=== PATIENT | male | born 1960 | race Caucasian/White ===

== ENCOUNTER 2018-05-14 00:03 | Emergency (ER) | payer OTHER, SELFPAY ==
[2018-05-14 00:04] VITALS: BP 159/117; PULSE 74; RESP 16; TEMP 36.8; O2SAT 98; BMI 34.7
[2018-05-14 00:12] VITALS: BP 166/102; PULSE 79; RESP 18; O2SAT 95
--- NOTE | 2018-05-14 00:22 | EKG12_ITS ---
Test Reason : HTN Blood Pressure : / mmHG Vent. Rate : 080 BPM Atrial Rate : 080 BPM P-R Int : 148 ms QRS Dur : 098 ms QT Int : 392 ms P-R-T Axes : 061 -11 014 degrees QTc Int : 452 ms Normal sinus rhythm Incomplete right bundle branch block Borderline ECG Confirmed by PEGGY POPE ([id number]), graphic editor PAUL MACKENZIE ([id number]) on 05/19/2018 1:37:18 PM Referred By: CATHI Confirmed By:PEGGY POPE
--- NOTE | 2018-05-14 00:26 | ED.RN ---
NO OLD EKGS IN MUSE.
[2018-05-14 00:52] VITALS: BP 167/100; PULSE 77; RESP 17
[2018-05-14 00:55] LABS: Absolute Lymphocyte Count 1.55 X10^3/ul (0.83-4.51); Absolute Neutrophil Count 2.5 X10^3/uL (2.0-7.7); Basophil# 0.01 X10^3/uL; Basophil% 0.2 % (0-1); Eosinophil# 0.16 X10^3/uL; Eosinophils% 3.4 % (0-5); Hematocrit 41.4 % (40-54); Hemoglobin 14.8 g/dl (13.0-16.5); Lymphocyte # 1.55 X10^3/ul (4.0); Lymphocyte % 33.1 % (19-41); Mean Corp Hgb Conc 35.7 g/gl (32-36); Mean Corpuscular Hgb 31.6 pg (27.0-32.0); Mean Corpuscular Volume 88.3 fL (80-94); Mean Platelet Vol. 9.1 fl (6.2-12.0); Monocyte# 0.48 X10^3/uL; Monocyte% 10.3 % (0-10); Neutrophil # 2.47 X10^3/uL (2.7-7.7); Neutrophil % 52.8 % (47-70); Platelet Count 176 K/mm3 (150-450); RBC Distribution Width SD 41.7 fl (35.1-43.9); Red Blood Count 4.69 M/mm3 (4.6-6.2); White Blood Count 4.7 K/mm3 (4.4-11.0)
[2018-05-14 01:02] LABS: Anion Gap 8 (5-15); BUN 20 mg/dL (7-18); BUN/Creat Ratio 19.8 RATIO (10-20); Calcium,Total 8.9 mg/dL (8.5-10.1); Chloride 108 mmol/L (98-107); Creatinine, Serum 1.01 mg/dL (0.70-1.30); EST Glomerular Filtration Rate 81 mL/min (>60); Est Glom Filt Rate - Afr Amer 98 mL/min (>60); Estimated Creatinine Clearance 79.95 ml/min; Glucose 105 mg/dL (74-106); POSITIVE COUNT NO; POSITIVE DIFFERENTIAL NO; POSITIVE MORPHOLOGY NO; Potassium 3.9 mmol/L (3.5-5.1); Sodium Level 143 mmol/L (136-145)
[2018-05-14 01:40] VITALS: BP 174/104; PULSE 78; RESP 18; O2SAT 96
--- NOTE | 2018-05-14 02:36 | ED.VISSUMM ---
- ER Visit Summary Date of Service: 05/14/18 Chief Complaint: [High blood pressure] History of Present Illness: The patient is a 57 M [presents the emergency department complaint of high blood pressure today. Patient states that he was walking down the street when he developed a nosebleed from the left side of his nose. Patient denies any trauma to his nose or picking his nose or blowing his nose. Patient states that he tried using ice to the nose and to his feet and then held pressure and it took several hours for the nose to stop bleeding. Patient checked his blood pressure at the time noted that his blood pressure was elevated. Patient states that his physician is also told him in the past that his blood pressure was somewhat elevated but no blood pressure medication was started. Patient denies any chest pain. He denies any shortness of breath. Patient denies severe headaches.] Physical Examination: [HEENT-PERRLA, EOMI. Cranial nerves II through XII grossly intact. TMs clear. Mucous membranes moist. No adenopathy. Left nasal vault-patient has some dry blood to the anterior septum with no active bleeding noted currently. Cardiovascular-regular rate and rhythm without murmur or ectopy Lungs-clear to auscultation, chest wall stable without crepitus or subcu emphysema Abdomen-normoactive bowel sounds, soft, nontender, no rebound or rigidity, no peritoneal signs. Extremities-intact ?4, normal range of motion, normal pulses, atraumatic] Test Results: [EKG obtained on arrival shows sinus rhythm with a ventricular rate of 80 bpm with an incomplete right bundle branch block. CBC with differential was normal. Chemistries were normal. Troponin was less than 0.015.] Emergency Department Course and Treatment: [Patient was started on Norvasc 5 mg p.o.] Treatment Plan: [Patient will be started on Norvasc and advised to follow-up with his primary care physician in 1 week. Patient to keep a journal of his blood pressures over the course of next week every day.] Disposition: [Discharged home in stable condition] Impression: [Hypertension Epistaxis left anterior-resolved] This note was generated with [employer] dictation software. It may contain incorrect words, spelling, and punctuation that were not noted in review of the chart prior to signing ED Disposition - Plan for ED Patient: Chief Complaint: Hypertension Referrals: Delvin Fraser DO [Primary Care Provider] -
--- NOTE | 2018-05-14 02:39 | ED.DEP ---
ED Disposition - Plan for ED Patient: Chief Complaint: Hypertension Instructions: ED Hypertension New Begin Tx, ED Nosebleed Prescriptions: Amlodipine [Norvasc] 5 mg PO DAILY #30 tab Referrals: Delvin Fraser DO [Primary Care Provider] - 1 Week
[2018-05-14] MEDS: amLODIPine 5 MG Tablet PO (02:48)
[2018-05-14 02:52] VITALS: BP 158/102; PULSE 77; RESP 19; O2SAT 95
== END 2018-05-14 02:53 | disposition home or self-care (01) ==
LOC: ED 00:29
PROVIDERS: Emergency Provider Emergency Medicine; PCP Family Medicine
DX: I10 Essential (primary) hypertension (principal); R04.0 Epistaxis; I45.10 Unspecified right bundle-branch block
CPT/HCPCS: 80048; 84484; 85025; 93005; 99284

== ENCOUNTER 2019-11-04 10:05 | Observation (INO) | payer OTHER, SELFPAY ==
[2019-11-04] VITALS (11 sets, daily range): BP systolic 107–136; BP diastolic 70–90; PULSE 16–84; RESP 15–81; TEMP 36.1–37; O2SAT 94–100; BMI 33.2; BMI 25.7; BMI 25.8
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
[2019-11-04] MEDS: 0.9% Normal Saline 1,000 ML 150 ML IV ×2 (10:37→14:19)
[2019-11-04] MEDS: Diphth,Pertuss(Acell),Tet Vac 0.5 ML Vial IM (10:39)
[2019-11-04 10:40] LABS: Absolute Lymphocyte Count 1.39 X10^3/uL (0.83-4.51); Absolute Neutrophil Count 3.8 X10^3/uL (2.0-7.7); Basophil# 0.02 X10^3/uL; Basophil% 0.3 % (0-1); Eosinophil# 0.09 X10^3/uL; Eosinophils% 1.5 % (0-5); Hematocrit 45.4 % (40-54); Hemoglobin 15.2 g/dL (13.0-16.5); Lymphocyte # 1.39 X10^3/ul (4.0); Lymphocyte % 23.6 % (19-41); Mean Corp Hgb Conc 33.5 g/dL (32-36); Mean Corpuscular Hgb 29.9 pg (27.0-32.0); Mean Corpuscular Volume 89.2 fL (80-94); Mean Platelet Vol. 9.4 fl (6.2-12.0); Monocyte# 0.54 X10^3/uL; Monocyte% 9.2 % (0-10); NRBC Flagged by Analyzer 0 % (0-5); Neutrophil # 3.83 X10^3/uL (2.7-7.7); Neutrophil % 64.9 % (47-70); Platelet Count 168 K/mm3 (150-450); RBC Distribution Width CV 12.5 % (11.6-14.6); Red Blood Count 5.09 M/mm3 (4.6-6.2); White Blood Count 5.9 K/mm3 (4.4-11.0)
[2019-11-04 10:51] LABS: ALB/GLOB Ratio 1.1 RATIO (0.9-2.4); AST(SGOT) 40 U/L (15-37); Alanine Aminotransfer ALT/SGPT 90 U/L (16-61); Albumin, Serum 4.1 g/dL (3.2-5.0); Alkaline Phosphatase 73 U/L (45-117); Anion Gap 4 (5-15); BUN 21 mg/dL (7-18); BUN/Creat Ratio 18.3 RATIO (10-20); Calcium,Total 9.1 mg/dL (8.5-10.1); Chloride 108 mmol/L (98-107); Creatinine, Serum 1.15 mg/dL (0.70-1.30); EST Glomerular Filtration Rate 70 mL/min (>60); Est Glom Filt Rate - Afr Amer 84 mL/min (>60); Estimated Creatinine Clearance 70.87 ml/min; Globulin 3.7 g/dL (2.2-4.2); Glucose 100 mg/dL (74-106); Potassium 4.6 mmol/L (3.5-5.1); Protein, Total 7.8 g/dL (6.4-8.2); Sodium Level 139 mmol/L (136-145)
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
--- NOTE | 2019-11-04 12:09 | ED.RN ---
pt urinated while in imaging. imaging was unaware of the need for U/A. MD aware. pt aware that there is an order for U/A.
[2019-11-04 12:32] LABS: Bacteria 0 SEEN /hpf (None Seen); Mucous, Urine 0 SEEN /hpf (<or=2+); Red Blood Cells-Urine 0 SEEN /hpf (0-5); Squamous Epithelial Cells - UA 0 SEEN /hpf (0-5); White Blood Cells 0 SEEN /hpf (0-5)
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
[2019-11-04 12:49] LABS: Glucose, Dipstick Normal (Normal); Ketone-Dipstick Negative (Negative); Leukocyte Esterase-Dipstick Negative /ul (Negative); Nitrite-Dipstick Negative (Negative); Occult Blood-Urine Negative /ul (Negative); Protein-Dipstick Negative (Negative); Urine Bilirubin Dipstick Negative (Negative); Urine Urobilinogen Normal (Normal); Urine pH 6.5 (5.0 - 8.0)
[2019-11-04 12:50] LABS: Color, Urine YELLOW (Yellow); Urine Clarity Clear (Clear)
[2019-11-04] MEDS: Cefazolin 1 GM/50 ML BAG IV (13:21)
--- NOTE | 2019-11-04 14:52 | EKG12_ITS ---
Test Reason : PRE OP Blood Pressure : / mmHG Vent. Rate : 074 BPM Atrial Rate : 074 BPM P-R Int : 150 ms QRS Dur : 106 ms QT Int : 388 ms P-R-T Axes : 059 012 024 degrees QTc Int : 430 ms Normal sinus rhythm with sinus arrhythmia Normal ECG Confirmed by RAVINDER ZIMMERMAN, IAN ([id number]), associate entertainment editor DEBRA MERCER ([id number]) on 11/10/2019 2:10:39 PM Referred By: FRANCHESCA Confirmed By:IAN CASTELLON MD
--- NOTE | 2019-11-04 15:12 | NURSING ---
PT TO A.C. VIA BED
--- NOTE | 2019-11-04 16:37 | PCM.DC.URO ---
Discharge Diet: Light diet - advance as tolerated Discharge Activity: May Not Drive, May not drive while taking narcotic pain medications., May Shower Call your doctor if your incision/area has: Continuous Slow Oozing, Increased Pain/ Swelling, Increased Redness, Swelling at the incision site Call your doctor if you observe: Fever of 101 or Higher Cleanse incision/area with: Soap & Water Allergies/Adverse Reactions: Allergies No Known Allergies Allergy (Verified 11/04/19 10:09) Medications to take at Discharge Cephalexin [Keflex] 500 mg PO TID #21 cap 11/04/19 Famotidine 5 mg PO DAILY 11/04/19 Hydrocodone/Acetaminophen [[place] 5-325 Tablet] 1 ea PO Q4H PRN PRN 5 Days #14 tab 11/04/19 Lisinopril 20 mg PO DAILY 11/04/19 The following prescriptions were given: Cephalexin [Keflex] 500 mg PO TID #21 cap Prescription Printed Hydrocodone/Acetaminophen [[place] 5-325 Tablet] 1 ea PO Q4H PRN PRN 5 Days #14 tab PRN Reason: Pain Score 1-10/10 Prescription Printed Primary Care Physician: Delvin Fraser DO [Primary Care Provider] - Test Results: Test results from this visit will be discussed in further detail at your follow-up appointment, if applicable. Please Follow Up With: Miguelito Thompson MD When: in 2 weeks, please call to make an appointment.
[2019-11-04] MEDS: Bupivacaine Mpf 0.5% 30 ML VIAL (17:00)
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
== END 2019-11-04 20:45 | disposition home or self-care (01) ==
LOC: ED 11:41 → MS3 13:29
PROVIDERS: Admitting Provider Urology; Emergency Provider Emergency Medicine; PCP Family Medicine; Visit Provider Urology
PROC: (CPT 13132; principal; 2019-11-04 16:15)
DX: S31.31XA Laceration without foreign body of scrotum and testes, initial encounter (principal); V18.4XXA Pedal cycle driver injured in noncollision transport accident in traffic accident, initial encounter; Y93.55 Activity, bike riding; Y92.89 Other specified places as the place of occurrence of the external cause; Z23 Encounter for immunization; I10 Essential (primary) hypertension; Z79.899 Other long term (current) drug therapy
CPT/HCPCS: 00920; 13132; 13133; 20102; 74177; 76870; 80053; 81001; 85025; 90715; 93005; 93976; 96361; 96365; 99218; 99284; J7030; Q9967; A4216; G0378; J2405